=== PATIENT | female | born 2005 | race Two or more races ===

== ENCOUNTER → 2025-01-23 | Emergency (ER) | payer OTHER ==
[~2025-01-23] VITALS: Ht 152.4 cm; Wt 54.4 kg
[~2025-01-23] MED LIST: 0.9 % SODIUM CHLORIDE 1,000 ML IV SCH; FAMOTIDINE/PF 20 MG in 0.9 % SODIUM CHLORIDE 8 ML IV PUSH STA; FAMOTIDINE/PF 20 MG/2 ML VIAL ONE; ONDANSETRON HCL 2 MG/ML VIAL IV ONE; ONDANSETRON HCL 2 MG/ML VIAL ONE; THIAMINE HCL 100 MG/ML 2 ML VIAL IV ONE; THIAMINE HCL 100 MG/ML 2 ML VIAL ONE
[2025-01-23 15:04] LABS: BASO % 0.1 % (0.1-1.2); EOS # 0.00 (0.04-0.54); EOS % 0.0 % (0.7-7.0); LYMPH # 1.10 (1.18-3.74); LYMPH % 5.4 % (19.3-53.1); MEAN PLATELET VOLUME 11.10 fl (9.4-12.4); MONO # 1.23 (0.24-0.82); MONO % 6.0 % (4.7-12.5); NEUT # 17.86 (1.56-6.13); NEUT % 87.8 % (34.0-71.1); RED CELL DISTRIBUTION WIDTH 12.1 % (11.6-14.4)
[2025-01-23 15:31] LABS: ALT/SGPT 87.0 U/L (12-78); AST/SGOT 103.0 U/L (15-37); BILIRUBIN TOTAL 0.39 mg/dL (0.3-1.2); BUN CREA RATIO 24.0 (7.0-25.0); CREATININE SERUM 0.83 mg/dL (0.55-1.02); GFR 85.96; GLOBULINA 4.0 G/DL (2.4-3.5); GLUCOSE FASTING 70.0 mg/dL (65-100); OSMOLALITY SERUM 284.0 MOSM/KG (275-295)
== END | disposition home or self-care (01) ==
LOC: ER 12:03
PROVIDERS: General Practice
DX: T51.0X1A Toxic effect of ethanol, accidental (unintentional), initial encounter (principal); A08.8 Other specified intestinal infections; R11.2 Nausea with vomiting, unspecified